=== PATIENT | female | born 1950 | race Caucasian/White ===

== ENCOUNTER 2024-04-02 12:35 | Emergency (ER) | payer MEDICARE, OTHER, SELFPAY ==
[2024-04-02 12:39] VITALS: BP 181/116
[2024-04-02 13:04] LABS: % Basophils 0.4 % (0-2); % Eosinophils 0.7 % (0-6); % Immature Granulocytes 0.5 % (0-0.5); % Lymphocytes 11.6 % (20.5-51.1); % Monocytes 7.8 % (1.7-9.3); Absolute Eosinophils 0.1 10^3/uL (0-0.7); Absolute Immature Granulocytes 0.1 10^3/uL (0-0.05); Absolute Lymphocytes 1.2 10^3/uL (1.2-3.4); Absolute Monocytes 0.8 10^3/uL (0.1-0.6); Absolute Neutrophils 7.8 10^3/uL (1.4-6.5); Hematocrit 41.7 % (37.0-47.0); Hemoglobin 14.4 g/dL (12.0-16.0); Mean Corp Hgb Conc. 34.5 g/dL (33.0-37.0); Mean Corpuscular Volume 84.1 fL (81.0-99.0); Mean Platelet Volume 8.9 fL (7.4-10.4); Nucleated Red Blood Cells % 0 %; Platelet Count 251 10^3/uL (130-400); Red Blood Cell Count 4.96 10^6/uL (4.20-5.40); Red Cell Dist. Width 12.9 % (11.5-14.5); White Blood Cell Count 9.9 10^3/uL (4.8-10.8)
[2024-04-02 13:11] LABS: ALT (SGPT) 37 U/L (0-35); AST (SGOT) 30 U/L (14-36); Albumin 4.5 g/dl (3.5-5.0); Alkaline Phosphatase 87 U/L (38-126); Blood Urea Nitrogen 17 mg/dl (7-17); Calcium 9.9 mg/dl (8.4-10.2); Carbon Dioxide 27 mmol/L (22-30); Chloride 102 mmol/L (98-107); Glucose 102 mg/dl (70-99); Potassium 4.1 mmol/L (3.5-5.1); Sodium 139 mmol/L (135-145); Total Bilirubin 0.7 mg/dl (0.2-1.3); Total Protein 6.6 g/dl (6.3-8.2); eGFR > 60.00
[2024-04-02 13:20] LABS: Troponin I < 0.012 ng/ml
--- NOTE | 2024-04-02 14:00 | ED.GENMED ---
History of Present Illness
General
Chief Complaint: Chest Pain
Source: patient
Exam Limitations: none
Time Seen by Provider: 04/02/24 13:59
Nursing documentation reviewed up to this point in time: agreed with
History of Present Illness
History of Present Illness:
73-year-old female with no significant past medical history presents stating she awakened at 3 AM with 'tightness' mid chest pain, took a baby aspirin, drink some water, walked around a little bit and by 4 AM she took a second baby aspirin and was
able to lay down as sensation subsided. She slept for a while and awakened at 6:30 AM felt better but feels 'something is not right' rubbing her hand up and down her throat and mid chest to describe where the symptom is
She denies lightheadedness or dizziness. She did feel SOB with the sensation. Denies abdominal pain.
She has had similar symptoms in the past. In September 2022 followed up with student services coordinator after similar symptoms and had a negative stress test.
Has had similar symptoms 5 times since 09/2023, she always takes a baby aspirin, drinks water and walks around and the symptoms subside after 10 minutes. Sometimes it's associated with SOB
Past History
Past History
ED Past Medical History: GERD and Hypercholesterolemia
ED Past Surgical History: and Orthopedic (Meniscal surgery left knee, foot surgery)
Social History
Tobacco: Non-smoker
Alcohol: Daily
Drug: None
Personal:
Living: with family
Review of Systems
Review of Systems
Allergies reviewed?: Yes
All Other Systems: ROS reviewed and negative except as documented in HPI and ROS
Constitutional: Denies fever
EENT: Denies sore throat
Respiratory: Denies trouble breathing
Cardiac: Reports chest pain
ABD/GI: Denies abdominal pain, nausea, vomiting or diarrhea
: Denies dysuria or difficulty voiding
Musculoskeletal: Reports no symptoms
Skin: Reports no symptoms
Neurological: Reports no symptoms
Phy Exam
Physical Exam
Physical Exam:
GENERAL: No acute distress. A&Ox3.
CONSTITUTIONAL: Afebrile.
EYES: clear, conjunctivae normal
ENMT: moist mucus membranes, Pharynx nl
RESPIRATORY: Regular respirations, nonlabored, lungs clear.
CARDIOVASCULAR: Regular rate and rhythm, no murmurs, no rubs.
GI: Soft, nontender, normal BS
MUSCULOSKELETAL: Moves with ease. Well perfused.
SKIN: Warm, dry, pink
PSYCH: Normal mood and affect. Well kept, interactive and appropriate
NEUROLOGIC: Awake, alert and oriented. No focal neurological deficits
Scores
Heart Score for Chest Pain Patients
STEMI patient?: Not applicable
Course
Orders/Labs/Results
Orders:
Orders
04/02/24 12:36
EKG [Electrocardiogram (*1)] Urgent
Reason for Study: Chest Pain
EKG- Treatment ONCE
04/02/24 12:47
Complete Blood Count/With Diff Urgent
Comprehensive Metabolic Panel Urgent
Troponin I Urgent
04/02/24 14:01
EKG- Treatment ONCE
CR Chest - 2 Views Urgent
Comment:
Reason For Exam: chest pain
04/02/24 14:15
Mag Hydrox/Al Hydrox/Simeth [Maalox] 30 ml Phenobarb/Hyoscy/Atropine/Scop [] 10 ml Viscous Lidocaine 2% [Xylocaine Viscous Cup] 10 ml PO NOW
04/02/24 14:20
Mag Hydrox/Al Hydrox/Simeth [Maalox] 30 ml .ROUTE .STK-MED ONE
Phenobarb/Hyoscy/Atropine/Scop [] 10 ml .ROUTE .STK-MED ONE
Viscous Lidocaine 2% [Xylocaine Viscous Cup] 15 ml .ROUTE .STK-MED ONE
04/02/24 15:45
Electrocardiogram (*1) Urgent
Reason for Study: Chest Pain
04/02/24 16:22
Troponin I Urgent
Abnormal Lab Results
04/02/24
12:47
Abs Immat Gran (auto) 0.1 H 10^3/uL
(0-0.05)
Absolute Neuts (auto) 7.8 H 10^3/uL
(1.4-6.5)
Absolute Monos (auto) 0.8 H 10^3/uL
(0.1-0.6)
Neutrophils % 79.0 H %
(42.2-75.2)
Lymphocytes % 11.6 L %
(20.5-51.1)
Glucose 102 H mg/dl
(70-99)
ALT 37 H U/L
(0-35)
04/02/24 12:47
04/02/24 12:47
Vital Signs
Initial and Last Documented VS:
Initial Vital Signs
Temp Pulse Resp BP Pulse Ox
98.2 F 92 18 181/116 95
04/02/24 12:39 04/02/24 12:39 04/02/24 12:39 04/02/24 12:39 04/02/24 12:39
Last Documented Vital Signs
Temp Pulse Resp BP Pulse Ox
98.2 F 69 21 155/92 95
04/02/24 12:39 04/02/24 16:30 04/02/24 16:30 04/02/24 16:23 04/02/24 16:30
MDM/Problems Addressed
Differential Diagnosis Includes:
ACS, GERD
MDM/Problems Addressed:
73-year-old female with no significant past medical history presents stating she awakened at 3 AM with 'tightness' mid chest pain, took a baby aspirin, drink some water, walked around a little bit and by 4 AM she took a second baby aspirin and was
able to lay down as sensation subsided. She slept for a while and awakened at 6:30 AM felt better but feels 'something is not right' rubbing her hand up and down her throat and mid chest to describe where the symptom is
She denies lightheadedness or dizziness. She did feel SOB with the sensation. Denies abdominal pain.
She has had similar symptoms in the past. In September 2022 followed up with student services coordinator after similar symptoms and had a negative stress test.
Has had similar symptoms 5 times since 09/2023, she always takes a baby aspirin, drinks water and walks around and the symptoms subside after 10 minutes. Sometimes it's associated with SOB
2:00 p.m.
CBC normal
CMP normal
Troponin normal
EKG NSR
CXR NAD
5:10 p.m.
Troponin and EKG #2 unchanged, normal
All results discussed with patient.
She states she got much relief after the GI cocktail.
History and exam consistent with GERD
Prescription for Protonix sent to her pharmacy. GI referral provided
She has an appointment with her PCP in May, she states she will contact her tomorrow and inform of today's visit.
*Critical Care Note
Total Time (30-74mins, 75-104mins- exclusive of procedures): Not Applicable
ED Attending Note
-
Portions of this chart may have been created with voice recognition software.� Occasional wrong word or��sound alike� substitutions may have occurred due to the inherent limitations of voice recognition software.
Discharge Plan
Departure
Patient Disposition: Home (Routine Discharge)
Date of Disposition: 04/02/24
Time of Disposition: 17:01
Patient with high blood pressure during this ER visit?: No
Condition: Good
Discharge Problem:
Chest pain due to GERD
Instructions: Chest Pain That Is Not Caused by the Heart (DC), Acid Reflux and GERD in Adults (DC)
Prescriptions:
New
pantoprazole [Protonix] 40 mg tablet,delayed release (DR/EC)
40 mg PO DAILY Qty: 30 0RF
Referrals:
Shana López MD [Family Provider] -
Tami Chavez MD [Active] - Next open appointment
Activity Restrictions/Additional Instructions:
As we discussed, no sign of any damage to your heart specifically, no sign of a heart attack.
This is most likely reflux.
I sent a prescription to your pharmacy for Protonix, take it and let your doctor know if it helps when you see her in May
I provided you with the name of the GI doctor to use if needed.
Interventions
Interventions:
*Risk Screen - Suicide Last Done: 04/02/24 14:04
*General Assessment Last Done: 04/02/24 14:04
*Neglect/Abuse Screening Last Done: 04/02/24 14:04
ED- Fall Risk Assessment Last Done: 04/02/24 14:04
*ED COVID-19 Vaccine History Last Done: 04/02/24 14:04
*Nursing Disposition Last Done: 04/02/24 17:25
ED- Cardiac Assessment Last Done: 04/02/24 14:04
Discharge Date and Time
Discharge Date/Time: 04/02/24 17:27
Print Language: FAROESE
[2024-04-02 14:08] VITALS: BP 170/89
[2024-04-02 14:13] VITALS: BMI 25.0
[2024-04-02] MEDS: MAALOX 50 PO (14:22)
[2024-04-02 14:30] VITALS: BP 161/87
[2024-04-02 15:12] VITALS: BP 149/124
[2024-04-02 15:31] VITALS: BP 146/77
[2024-04-02 16:23] VITALS: BP 155/92
[2024-04-02 16:52] LABS: Troponin I < 0.012 ng/ml
== END 2024-04-02 17:27 | disposition home or self-care (01) ==
LOC: EMR 12:35
PROVIDERS: Emergency Medicine; Registered Nurse; EMERGENCY PHYSICIAN Emergency Medicine; FAMILY PHYSICIAN Internal Medicine
DX: R07.89 Other chest pain (principal); R06.02 Shortness of breath; K21.9 Gastro-esophageal reflux disease without esophagitis; E78.00 Pure hypercholesterolemia, unspecified; Z88.0 Allergy status to penicillin; Z88.2 Allergy status to sulfonamides
CPT/HCPCS: 99284; 71046; 80053; 84484; 85025; 93005

== ENCOUNTER → 2024-05-18 07:31 | Outpatient (REF) | payer MEDICARE, OTHER, SELFPAY | LOC: WDC 07:31 | PROVIDERS: ATTENDING PHYSICIAN Internal Medicine | DX: Z12.31 Encounter for screening mammogram for malignant neoplasm of breast (principal) | CPT/HCPCS: 77063; 77067 ==

== ENCOUNTER 2024-10-06 14:09 | Emergency (ER) | payer MEDICARE, OTHER, SELFPAY ==
[2024-10-06 14:14] VITALS: BP 161/87
--- NOTE | 2024-10-06 15:10 | ED.GENMED ---
Addendum entered and electronically signed by Chanelle Musa DO 10/07/24 00:26:
74-year-old female presenting with right flank pain starting after she lift a heavy box on Tuesday 10/03. Patient states that this morning she had an episode of diarrhea. Patient denies any rash or urinary symptoms. CT abdomen pelvis reviewed, no
significant acute abnormality, mild colonic stool burden. UA negative for UTI. Labs wnl. On exam, patient has right flank tenderness to palpation. No overlying rash. Neurologically intact. Suspect muscular strain given symptoms started after
patient lifted a heavy box. Discussed results with patient at bedside. Stable for discharge with PCP follow-up. Patient states that she has lidocaine patches at home
Original Note:
History of Present Illness
General
Chief Complaint: Abdominal Pain
Time Seen by Provider: 10/06/24 14:29
History of Present Illness
History of Present Illness:
74-year-old woman presenting to the emergency department with flank pain and diarrhea. Patient states that 3 days ago she lifted something heavy. Since then she is been having right-sided flank pain that radiates to the right side of her abdomen.
She states it is worse at night. No numbness tingling. No weakness. Today she developed some diarrhea and nausea. She went to an urgent care who told her to come here for further evaluation. She has been taking Advil with some relief. No
urinary symptoms. She had a kidney stone a few years ago but is unsure.
Past History
Past History
ED Past Medical History: GERD and Hypercholesterolemia
ED Past Surgical History: and Orthopedic (Meniscal surgery left knee, foot surgery)
Social History
Tobacco: Non-smoker
Alcohol: Daily
Drug: None
Personal:
Living: with family
Phy Exam
Physical Exam
Physical Exam:
GENERAL: in no acute distress
HEENT: normocephalic, extraocular movements intact, moist oral mucosa
NECK: normal inspection
RESPIRATORY: no respiratory distress, clear to auscultation bilaterally
CARDIOVASCULAR: regular rate and rhythm
ABDOMEN/: soft, non-distended, non-tender to palpation, no rebound or guarding
Reproducible right flank tenderness, no rash
EXTREMITIES: non-tender, no edema/swelling
NEUROLOGIC: awake and alert, moves all extremities
SKIN: warm
Course
Orders/Labs/Results
Orders:
Orders
10/06/24 15:09
CT Abd/pelvis W Iv Cont Urgent
Comment:
Reason For Exam: r flank pain, diarrhea
Urinalysis Reflex To Culture Urgent
Date Specimen was Collected: 10/06/24
Time Specimen was Collected: 15:35
Ketorolac [Toradol] 15 mg IV NOW STA
10/06/24 15:41
Complete Blood Count/With Diff Urgent
Comprehensive Metabolic Panel Urgent
Abnormal Lab Results
10/06/24
15:41
Abs Immat Gran (auto) 0.1 H 10^3/uL
(0-0.05)
Absolute Neuts (auto) 8.2 H 10^3/uL
(1.4-6.5)
Absolute Lymphs (auto) 1.0 L 10^3/uL
(1.2-3.4)
Absolute Monos (auto) 0.9 H 10^3/uL
(0.1-0.6)
Neutrophils % 79.7 H %
(42.2-75.2)
Lymphocytes % 9.8 L %
(20.5-51.1)
Total Protein 6.0 L g/dl
(6.3-8.2)
10/06/24 15:41
10/06/24 15:41
Vital Signs
Initial and Last Documented VS:
Initial Vital Signs
Temp Pulse Resp BP Pulse Ox
98.2 F 78 16 161/87 98
10/06/24 14:14 10/06/24 14:14 10/06/24 14:14 10/06/24 14:14 10/06/24 14:14
Last Documented Vital Signs
Temp Pulse Resp BP Pulse Ox
98.2 F 80 20 174/72 99
10/06/24 14:14 10/06/24 17:07 10/06/24 17:07 10/06/24 17:07 10/06/24 17:07
MDM/Problems Addressed
Differential Diagnosis Includes:
Patient is a 74-year-old woman presenting to the emergency department right-sided flank pain and diarrhea. Vitals are unremarkable and exam does show reproducible tenderness over the right flank and right lateral abdomen. Differential could be MSK
given that she did have a trigger right before the pain and it is positional. However could be kidney stone or urine infection. Will check blood work urine and CT scan. Will give Toradol.
*Critical Care Note
Total Time (30-74mins, 75-104mins- exclusive of procedures): Not Applicable
Update Note
Update Note:
Reevaluation the pain has slightly improved. She has noticed that is worse with movement which does support the musculoskeletal nature of the pain. Blood work does show normal white count and normal LFTs. Pending urine and CT scan at this time.
Patient signed out to oncoming attending pending results.
ED Attending Note
-
Portions of this chart may have been created with voice recognition software.� Occasional wrong word or��sound alike� substitutions may have occurred due to the inherent limitations of voice recognition software.
Discharge Plan
Departure
Prescriptions:
No Action
pantoprazole [Protonix] 40 mg tablet,delayed release (DR/EC)
40 mg PO DAILY Qty: 30 0RF
Referrals:
Shana López MD [Family Provider] -
Interventions
Interventions:
*General Assessment Last Done: 10/06/24 15:01
YL-Xyswre-Nqblzhmbxm Assessment Last Done: 10/06/24 15:01
Discharge Date and Time
Print Language: BRUNEIAN
[2024-10-06] MEDS: TORADOL 15 MG IV (15:41)
[2024-10-06 15:56] LABS: % Basophils 0.3 % (0-2); % Eosinophils 0.7 % (0-6); % Immature Granulocytes 0.5 % (0-0.5); % Lymphocytes 9.8 % (20.5-51.1); % Neutrophils 79.7 % (42.2-75.2); Absolute Eosinophils 0.1 10^3/uL (0-0.7); Absolute Immature Granulocytes 0.1 10^3/uL (0-0.05); Absolute Monocytes 0.9 10^3/uL (0.1-0.6); Absolute Neutrophils 8.2 10^3/uL (1.4-6.5); Hematocrit 37.9 % (37.0-47.0); Hemoglobin 12.8 g/dL (12.0-16.0); Mean Corp Hgb Conc. 33.8 g/dL (33.0-37.0); Mean Corpuscular Volume 85.9 fL (81.0-99.0); Nucleated Red Blood Cells % 0 %; Platelet Count 227 10^3/uL (130-400); Red Blood Cell Count 4.41 10^6/uL (4.20-5.40); Red Cell Dist. Width 12.2 % (11.5-14.5); White Blood Cell Count 10.3 10^3/uL (4.8-10.8)
[2024-10-06 16:09] LABS: ALT (SGPT) 22 U/L (0-35); AST (SGOT) 23 U/L (14-36); Albumin 4.1 g/dl (3.5-5.0); Alkaline Phosphatase 66 U/L (38-126); Blood Urea Nitrogen 17 mg/dl (7-17); Calcium 9.2 mg/dl (8.4-10.2); Carbon Dioxide 27 mmol/L (22-30); Chloride 105 mmol/L (98-107); Glucose 98 mg/dl (70-99); Sodium 137 mmol/L (135-145); Total Bilirubin 0.9 mg/dl (0.2-1.3); eGFR > 60.00
[2024-10-06 17:07] VITALS: BP 174/72
[2024-10-06 17:58] LABS: Urine Albumin Negative (Neg - Trace); Urine Bilirubin Negative (Negative); Urine Character Clear (Clear); Urine Color Yellow; Urine Glucose Negative (Negative); Urine Ketone Negative (Negative); Urine Leukocyte Negative (Negative); Urine Nitrite Negative (Negative); Urine Occult Blood 1+ (Negative); Urine Urobilinogen Negative (Neg - 1+)
[2024-10-06 18:08] LABS: Urine Bacteria Few (Negative); Urine Red Blood Cell 0-2 /HPF (0-2); Urine Squamous Cell 0-2 /LPF (Few); Urine White Cell 0-2 /HPF (0-5)
--- NOTE | 2024-10-06 18:21 | ED.GENMED ---
History of Present Illness
General
Chief Complaint: Abdominal Pain
Time Seen by Provider: 10/06/24 14:29
Past History
Past History
ED Past Medical History: GERD and Hypercholesterolemia
ED Past Surgical History: and Orthopedic (Meniscal surgery left knee, foot surgery)
Social History
Tobacco: Non-smoker
Alcohol: Daily
Drug: None
Personal:
Living: with family
Course
Orders/Labs/Results
Orders:
Orders
10/06/24 15:09
CT Abd/pelvis W Iv Cont Urgent
Comment:
Reason For Exam: r flank pain, diarrhea
Ketorolac [Toradol] 15 mg IV NOW STA
10/06/24 15:41
Complete Blood Count/With Diff Urgent
Comprehensive Metabolic Panel Urgent
Urinalysis Reflex To Culture Urgent
Date Specimen was Collected: 10/06/24
Time Specimen was Collected: 15:35
Urine Microscopic Reflex Cult Urgent
Abnormal Lab Results
10/06/24
15:41
Abs Immat Gran (auto) 0.1 H 10^3/uL
(0-0.05)
Absolute Neuts (auto) 8.2 H 10^3/uL
(1.4-6.5)
Absolute Lymphs (auto) 1.0 L 10^3/uL
(1.2-3.4)
Absolute Monos (auto) 0.9 H 10^3/uL
(0.1-0.6)
Neutrophils % 79.7 H %
(42.2-75.2)
Lymphocytes % 9.8 L %
(20.5-51.1)
Total Protein 6.0 L g/dl
(6.3-8.2)
Ur Occult Blood Reflex 1+ A
(Negative)
Urine Bacteria (Reflex) Few A
(Negative)
10/06/24 15:41
10/06/24 15:41
Vital Signs
Initial and Last Documented VS:
Initial Vital Signs
Temp Pulse Resp BP Pulse Ox
98.2 F 78 16 161/87 98
10/06/24 14:14 10/06/24 14:14 10/06/24 14:14 10/06/24 14:14 10/06/24 14:14
Last Documented Vital Signs
Temp Pulse Resp BP Pulse Ox
98.2 F 80 20 174/72 99
10/06/24 14:14 10/06/24 17:07 10/06/24 17:07 10/06/24 17:07 10/06/24 17:07
Update Note
Update Note:
74-year-old female presenting with right flank pain starting after she lift a heavy box on Tuesday 10/03. Patient states that this morning she had an episode of diarrhea. Patient denies any rash or urinary symptoms. CT abdomen pelvis reviewed, no
significant acute abnormality, mild colonic stool burden. UA negative for UTI. Labs wnl. On exam, patient has right flank tenderness to palpation. No overlying rash. Neurologically intact. Suspect muscular strain given symptoms started after
patient lifted a heavy box. Discussed results with patient at bedside. Stable for discharge with PCP follow-up. Patient states that she has lidocaine patches at home
ED Attending Note
-
Portions of this chart may have been created with voice recognition software.� Occasional wrong word or��sound alike� substitutions may have occurred due to the inherent limitations of voice recognition software.
Discharge Plan
Departure
Patient Disposition: Home (Routine Discharge)
Date of Disposition: 10/06/24
Time of Disposition: 18:23
Patient with high blood pressure during this ER visit?: No
Discharge Problem:
Flank pain
Prescriptions:
No Action
pantoprazole [Protonix] 40 mg tablet,delayed release (DR/EC)
40 mg PO DAILY Qty: 30 0RF
Referrals:
Shana López MD [Family Provider] -
Activity Restrictions/Additional Instructions:
Take Tylenol and 175 mg every 6 hours and/or ibuprofen 800 mg every 8 hours with food as needed for pain
Use lidocaine patches as needed for pain
Follow-up with primary care doctor in 1 to 2 days
Return to the emergency department for numbness, weakness, tingling, burning with urination, blood in urine or new/worsening symptoms
Interventions
Interventions:
*General Assessment Last Done: 10/06/24 15:01
*Nursing Disposition Last Done: 10/06/24 18:37
PT-Bwyntt-Dwyucalqze Assessment Last Done: 10/06/24 15:01
Discharge Date and Time
Print Language: ROMANSH
== END 2024-10-06 19:24 | disposition home or self-care (01) ==
LOC: EMR 14:09
PROVIDERS: Student in an Organized Health Care Education/Training Program; EMERGENCY PHYSICIAN Emergency Medicine; FAMILY PHYSICIAN Internal Medicine
DX: R10.9 Unspecified abdominal pain (principal); R19.7 Diarrhea, unspecified; K21.9 Gastro-esophageal reflux disease without esophagitis; E78.00 Pure hypercholesterolemia, unspecified; Z87.442 Personal history of urinary calculi
CPT/HCPCS: 99284; 96374; 74177; 80053; 81003; 81015; 85025; Q9967

== ENCOUNTER → 2024-10-26 12:14 | Outpatient (REF) | payer MEDICARE, OTHER, SELFPAY | LOC: MRI 3T 12:14 | PROVIDERS: ATTENDING PHYSICIAN Internal Medicine | DX: M54.31 Sciatica, right side (principal); M54.32 Sciatica, left side | CPT/HCPCS: 72148 ==

== ENCOUNTER 2024-11-14 12:56 | Emergency (ER) | payer MEDICARE, OTHER, SELFPAY ==
[2024-11-14 13:00] VITALS: BP 156/110
[2024-11-14 14:30] VITALS: BMI 25.9
[2024-11-14 14:35] VITALS: BP 186/86
--- NOTE | 2024-11-14 15:25 | ED.GENMED ---
History of Present Illness
<DO Linda Flores Filed: 11/14/24 19:01>
General
Chief Complaint: Rectal Bleeding
Source: patient
Time Seen by Provider: 11/14/24 14:22
History of Present Illness
History of Present Illness:
74-year-old female presents to the emergency room for evaluation after having an episode of blood per rectum today. Around 1230 the patient had a bowel movement noted the water in the toilet bowl was bloody and there was blood noted on the toilet
paper. Stool itself seems normal. Patient states she like she had a ball in the right lower abdomen yesterday for short period of time. No abdominal discomfort now. Patient denies any nausea, vomiting or diarrhea. Has not had another bowel
movement since 1230. She does not take any oral anticoagulants but notes she does take Advil frequently for back pain.
Past History
<DO Linda Flores Filed: 11/14/24 19:01>
Past History
ED Past Medical History: GERD and Hypercholesterolemia
ED Past Surgical History: and Orthopedic (Meniscal surgery left knee, foot surgery)
Social History
Tobacco: Non-smoker
Alcohol: Daily
Drug: None
Personal:
Living: with family
Phy Exam
<DO Linda Flores Filed: 11/14/24 19:01>
Physical Exam
Physical Exam:
General: Awake, Alert, Oriented X3. No acute distress.
Vitals: unremarkable
Head: Atraumatic
Eyes: Pupils equal, EOMI
Throat: Airway intact, no exudates
Neck: Trachea midline
Lungs: Clear and equal b/l
Heart: Regular rate, no murmurs
Abd: Soft, Nontender, No pulsatile mass
Rectal: Performed by PA student and reports no blood on exam.
Neuro: Nonfocal
Skin: Warm, dry, no rash
Extremities: pulses equal b/l, no edema
Course
<Cheko H. DO Tony - Last Filed: 11/14/24 19:01>
Orders/Labs/Results
Orders:
Orders
11/14/24 15:12
CBC/With Diff [Complete Blood Count/With Diff] Urgent
CMP [Comprehensive Metabolic Panel] Urgent
UA [Urinalysis] Urgent
Date Specimen was Collected: 11/14/24
Time Specimen was Collected: 15:10
Urine Microscopic Urgent
Date Specimen was Collected: 11/14/24
Time Specimen was Collected: 15:10
Abnormal Lab Results
11/14/24
15:12
Abs Immat Gran (auto) 0.1 H 10^3/uL
(0-0.05)
Absolute Monos (auto) 0.7 H 10^3/uL
(0.1-0.6)
Immature Gran % 0.8 H %
(0-0.5)
Lymphocytes % 17.6 L %
(20.5-51.1)
Urine Occult Blood 1+ A
(Negative)
11/14/24 15:12
11/14/24 15:12
Vital Signs
Initial and Last Documented VS:
Initial Vital Signs
Temp Pulse Resp BP Pulse Ox
98.5 F 92 16 156/110 98
11/14/24 13:00 11/14/24 13:00 11/14/24 13:00 11/14/24 13:00 11/14/24 13:00
Last Documented Vital Signs
Temp Pulse Resp BP Pulse Ox
98.4 F 67 20 139/67 97
11/14/24 14:45 11/14/24 16:45 11/14/24 16:45 11/14/24 16:00 11/14/24 16:45
<JUNAID Perez - Last Filed: 11/14/24 18:08>
Orders/Labs/Results
Orders:
Orders
11/14/24 15:12
CBC/With Diff [Complete Blood Count/With Diff] Urgent
CMP [Comprehensive Metabolic Panel] Urgent
UA [Urinalysis] Urgent
Date Specimen was Collected: 11/14/24
Time Specimen was Collected: 15:10
Urine Microscopic Urgent
Date Specimen was Collected: 11/14/24
Time Specimen was Collected: 15:10
Abnormal Lab Results
11/14/24
15:12
Abs Immat Gran (auto) 0.1 H 10^3/uL
(0-0.05)
Absolute Monos (auto) 0.7 H 10^3/uL
(0.1-0.6)
Immature Gran % 0.8 H %
(0-0.5)
Lymphocytes % 17.6 L %
(20.5-51.1)
Urine Occult Blood 1+ A
(Negative)
11/14/24 15:12
11/14/24 15:12
Vital Signs
Initial and Last Documented VS:
Initial Vital Signs
Temp Pulse Resp BP Pulse Ox
98.5 F 92 16 156/110 98
11/14/24 13:00 11/14/24 13:00 11/14/24 13:00 11/14/24 13:00 11/14/24 13:00
Last Documented Vital Signs
Temp Pulse Resp BP Pulse Ox
98.4 F 67 20 139/67 97
11/14/24 14:45 11/14/24 16:45 11/14/24 16:45 11/14/24 16:00 11/14/24 16:45
<Cheko H. DO Tony - Last Filed: 11/14/24 19:01>
MDM/Problems Addressed
Differential Diagnosis Includes:
External hemorrhoid, anal fissure, diverticular bleed
MDM/Problems Addressed:
Patient presents after noting blood on her toilet paper and blood tinged water in the toilet bowl. Patient has not had another bowel movement since that initial 1. She was observed in the emergency room until essentially 5:00. She has remained
hemodynamically stable. Her labs are unremarkable. She did not have any blood on rectal exam and has not had any bowel movements in the past 5 hours. My suspicion for true lower GI bleed is low. Suspect she had either internal hemorrhoid or
fissure. Patient stable for discharge home and outpatient follow-up.
<Cheko Jimenez DO - Last Filed: 11/14/24 19:01>
*Pulse Oximetry
Patient hypoxic: no
*Critical Care Note
Total Time (30-74mins, 75-104mins- exclusive of procedures): Not Applicable
<JUNAID Perez - Last Filed: 11/14/24 18:08>
*Critical Care Note
Total Time (30-74mins, 75-104mins- exclusive of procedures): Not Applicable
ED Attending Note
<Cheko Jimenez DO - Last Filed: 11/14/24 19:01>
-
Portions of this chart may have been created with voice recognition software.� Occasional wrong word or��sound alike� substitutions may have occurred due to the inherent limitations of voice recognition software.
Discharge Plan
Departure
Patient Disposition: Home (Routine Discharge)
Date of Disposition: 11/14/24
Time of Disposition: 16:41
Patient with high blood pressure during this ER visit?: Yes
Condition: Good
Discharge Problem:
Bright red rectal bleeding, Internal hemorrhoid, bleeding
Instructions: Hemorrhoids (DC), Gastrointestinal Bleeding (DC)
Prescriptions:
No Action
pantoprazole [Protonix] 40 mg tablet,delayed release (DR/EC)
40 mg PO DAILY Qty: 30 0RF
Referrals:
Erin Bahena MD [Active] -
Shana López MD [Family Provider] -
Activity Restrictions/Additional Instructions:
You come to the emergency room for evaluation of blood per rectum. The overall presentation seems most consistent with an internal hemorrhoid which cause some bleeding. If you had bleeding from higher up in your colon or GI tract I would expect
you to have repeated episodes of passing bloody stool and some other symptoms. I have given you the contact information for one of our gastroenterologists whom you can follow-up with. Certainly return to the emergency room if you are having more
episodes, or feel like things are getting worse
Interventions
Interventions:
*Risk Screen - Suicide Last Done: 11/14/24 13:00
*General Assessment Last Done: 11/14/24 14:31
*Neglect/Abuse Screening Last Done: 11/14/24 13:02
*ED- Fall Risk Assessment Last Done: 11/14/24 15:14
*ED COVID-19 Vaccine History Last Done: 11/14/24 14:31
*Nursing Disposition Last Done: 11/14/24 16:45
VN-Tlcymw-Rhfknpbkay Assessment Last Done: 11/14/24 15:14
ED- Cardiac Assessment Last Done: 11/14/24 15:14
ED- Pulmonary Assessment Last Done: 11/14/24 15:14
Discharge Date and Time
Discharge Date/Time: 11/14/24 17:06
Print Language: KENYAN
[2024-11-14 15:33] LABS: Urine Albumin Negative (Neg - Trace); Urine Bilirubin Negative (Negative); Urine Character Clear (Clear); Urine Color Yellow; Urine Glucose Negative (Negative); Urine Ketone Negative (Negative); Urine Leukocyte Negative (Negative); Urine Nitrite Negative (Negative); Urine Occult Blood 1+ (Negative); Urine Urobilinogen Negative (Neg - 1+)
[2024-11-14 15:48] LABS: ALT (SGPT) 32 U/L (0-35); AST (SGOT) 32 U/L (14-36); Albumin 4.6 g/dl (3.5-5.0); Alkaline Phosphatase 81 U/L (38-126); Blood Urea Nitrogen 11 mg/dl (7-17); Calcium 9.7 mg/dl (8.4-10.2); Carbon Dioxide 29 mmol/L (22-30); Chloride 103 mmol/L (98-107); Estimated Creatinine Clearance 53 ml/min; Glucose 95 mg/dl (70-99); Potassium 4.2 mmol/L (3.5-5.1); Sodium 140 mmol/L (135-145); Total Bilirubin 0.7 mg/dl (0.2-1.3); Total Protein 6.7 g/dl (6.3-8.2); eGFR > 60.00
[2024-11-14 15:50] LABS: % Basophils 0.5 % (0-2); % Eosinophils 1.3 % (0-6); % Immature Granulocytes 0.8 % (0-0.5); % Lymphocytes 17.6 % (20.5-51.1); % Monocytes 9.3 % (1.7-9.3); % Neutrophils 70.5 % (42.2-75.2); Absolute Eosinophils 0.1 10^3/uL (0-0.7); Absolute Immature Granulocytes 0.1 10^3/uL (0-0.05); Absolute Lymphocytes 1.3 10^3/uL (1.2-3.4); Absolute Monocytes 0.7 10^3/uL (0.1-0.6); Absolute Neutrophils 5.3 10^3/uL (1.4-6.5); Hemoglobin 14.2 g/dL (12.0-16.0); Mean Corp Hgb Conc. 33.8 g/dL (33.0-37.0); Mean Corpuscular Hgb 29.1 pg (27.0-31.0); Mean Corpuscular Volume 86.1 fL (81.0-99.0); Mean Platelet Volume 9.3 fL (7.4-10.4); Nucleated Red Blood Cells % 0 %; Platelet Count 289 10^3/uL (130-400); Red Blood Cell Count 4.88 10^6/uL (4.20-5.40); Red Cell Dist. Width 12.7 % (11.5-14.5); White Blood Cell Count 7.5 10^3/uL (4.8-10.8)
[2024-11-14 16:00] VITALS: BP 139/67
[2024-11-14 16:00] LABS: Urine Red Blood Cell 0-2 /HPF (0-2); Urine White Cell 0-2 /HPF (0-5)
== END 2024-11-14 17:06 | disposition home or self-care (01) ==
LOC: EMR 12:56
PROVIDERS: EMERGENCY PHYSICIAN Emergency Medicine; FAMILY PHYSICIAN Internal Medicine
DX: K62.5 Hemorrhage of anus and rectum (principal); K64.8 Other hemorrhoids; E78.00 Pure hypercholesterolemia, unspecified
CPT/HCPCS: 99283; 80053; 81003; 81015; 85025

== ENCOUNTER → 2025-02-20 11:25 | Outpatient (REF) | payer MEDICARE, OTHER, SELFPAY | LOC: MRI 3T 11:25 | PROVIDERS: ATTENDING PHYSICIAN Physician Assistant; FAMILY PHYSICIAN Internal Medicine | DX: M25.562 Pain in left knee (principal) | CPT/HCPCS: 73721 ==

== ENCOUNTER 2025-04-12 06:20 | Day surgery (SDC) | payer MEDICARE, OTHER, SELFPAY | END 2025-04-12 10:41 | disposition home or self-care (01) | LOC: GI 06:20 | PROVIDERS: ATTENDING PHYSICIAN Internal Medicine Gastroenterology | DX: K62.5 Hemorrhage of anus and rectum (principal); R12 Heartburn; K44.9 Diaphragmatic hernia without obstruction or gangrene; D12.5 Benign neoplasm of sigmoid colon; K63.5 Polyp of colon | CPT/HCPCS: 45385; 43235; 88305 ==

== ENCOUNTER → 2025-05-24 07:36 | Outpatient (REF) | payer MEDICARE, OTHER, SELFPAY | LOC: WDC 07:36 | PROVIDERS: ATTENDING PHYSICIAN Internal Medicine | DX: Z12.31 Encounter for screening mammogram for malignant neoplasm of breast (principal) | CPT/HCPCS: 77063; 77067 ==

== ENCOUNTER → 2025-06-04 09:05 | Outpatient (REF) | payer MEDICARE, OTHER, SELFPAY | LOC: WDC 09:05 | PROVIDERS: ATTENDING PHYSICIAN Internal Medicine | DX: R92.8 Other abnormal and inconclusive findings on diagnostic imaging of breast (principal) | CPT/HCPCS: 76642 ==